=== PATIENT | male | born 1980 | race Caucasian/White ===

== ENCOUNTER 2019-06-29 09:36 | Emergency (ER) | payer MEDICAID, OTHER ==
[~2019-06-29] VITALS: Ht 166.4 cm; Wt 96.6 kg
[2019-06-29 09:49] VITALS: BP 128/80
--- NOTE | 2019-06-29 09:58 | NUR ---
PATIENT AMBULATED WITH STEADY GAIT TO BED 7.
--- NOTE | 2019-06-29 10:01 | NUR ---
NOTIFIED DR SANTILLAN PT HAS CC OF LEFT ARM PAIN BUT STATES OCCASIONAL PRESSURE SENSATION IN LEFT CHEST
--- NOTE | 2019-06-29 10:04 | NUR ---
39YO M C/O LEFT UPPER BACK PAIN X 1 DAY. PT STATES 10/10 THROBBING PAIN WHICH RADIATES TO HIS LEFT ARM. DENIES TRAUMA, BUT ADMITS TO HEAVY LIFTING AT WORK. NO CHEST PAIN, NO H/A. NO MEDICATIONS TAKEN OR ALLEVIATING MEASURES DONE. VSS. CR <4SECS. CLEAR BREATH SOUNDS. PT HAS MOTOR STRENGTH 5/5 ON ALL EXTREMITIES. PT POSITIONED IN BED COMFORTABLY. ER MD MADE AWARE OF PT STATUS. PMH: HYPERCHOLESTEROLEMIA MEDS: NONE ALLERGIES: NONE
[2019-06-29] MEDS ORDERED: ACETAMINOPHEN 325 MG TAB PO ONE (10:30)
[2019-06-29] MEDS ORDERED: IBUPROFEN 600 MG TAB PO ONE (10:30)
--- NOTE | 2019-06-29 10:34 | NUR ---
PT GIVEN ORDERED MEDICATION W/O DIFFICULTY. WILL CONTINUE TO MONITOR PAIN LEVEL.
--- NOTE | 2019-06-29 11:11 | NUR ---
PT RESTING COMFORTABLY, VSS, RESPIRATIONS EVEN, STATES PAIN LEVEL IN LEFT ARM HAS DECREASED 4/10.
[2019-06-29 11:58] VITALS: BP 128/80
== END 2019-06-29 11:58 | disposition home or self-care (01) ==
LOC: MED 09:36
DX: M79.602 Pain in left arm (principal); M25.512 Pain in left shoulder; E78.5 Hyperlipidemia, unspecified
CPT/HCPCS: 93005; 99283

== ENCOUNTER 2019-11-14 10:01 | Emergency (ER) | payer MEDICAID ==
[~2019-11-14] VITALS: Ht 165.1 cm; Wt 86.2 kg
[2019-11-14 10:04] VITALS: BP 130/93
--- NOTE | 2019-11-14 10:07 | NUR ---
PT AMBULATED TO BED 11.
--- NOTE | 2019-11-14 10:10 | NUR ---
DR. WARE AT BEDSIDE.
--- NOTE | 2019-11-14 10:13 | NUR ---
39 Y/M PRESENTS TO ED FOR LAC/ FINGER INJURY X 1 HOUR ON DOOR. PT REPORTS SMASHED FINGER ON L INDEX FINGER. DENEIS PAIN. L INDEX FINGER CMS INTACT. NAIL CRACKED VERTICALLY, BLEEDING CONTROLLED. PMH- HLD NKDA
--- NOTE | 2019-11-14 10:20 | NUR ---
XR AT BEDSIDE.
--- NOTE | 2019-11-14 10:52 | NUR ---
APPLIED FINGER SPLINT TO LEFT INDEX FINGER
[2019-11-14 11:00] VITALS: BP 130/93
--- NOTE | 2019-11-14 11:00 | NUR ---
Patient discharged with v/s stable. Written and verbal after care instructions given and explained. Patient alert, oriented and verbalized understanding of instructions. Ambulatory with steady gait. All questions addressed prior to discharge. ID band removed. Patient advised to follow up with PMD. Rx of NAPROSYN AND CEPHALEXIN given. Patient educated on indication of medication including possible reaction and side effects. Opportunity to ask questions provided and answered.
== END 2019-11-14 11:00 | disposition home or self-care (01) ==
LOC: MED 10:01
DX: S67.191A Crushing injury of left index finger, initial encounter (principal); R03.0 Elevated blood-pressure reading, without diagnosis of hypertension; W23.0XXA Caught, crushed, jammed, or pinched between moving objects, initial encounter; Y93.89 Activity, other specified; Y92.89 Other specified places as the place of occurrence of the external cause; Y99.8 Other external cause status
CPT/HCPCS: 29130; 73140; 99283; Q0092